=== PATIENT | female | born 1940 | race Caucasian/White ===

== ENCOUNTER 2018-05-18 00:32 | Inpatient (IN) | payer OTHER ==
[~2018-05-18] VITALS: Ht 154.9 cm; Wt 57.8 kg
[~2018-05-18 00:32] MED LIST: CEPH500 PO; CIPR500 PO; HYDACE5 PO; HYDHCL25 PO; OMEP20ER PO; OXYACE5T PO; PIME1CR TOP; PRED20 PO; PROM25 PO; Percocet 5-3251 EACH PO; Permethrin60 GM TOP; Prednisone20 MG PO; RXHYDACE PO; TRIA15CR3 TOP; Valium5 MG PO; Zofran8 MG PO; [UNRECOGNIZED DRUG - REMARK]; [UNRECOGNIZED DRUG - REMARK]
[2018-05-18 01:08] LABS: BASOPHILS ABSOLUTE AUTO 0.06 K/mm3 (0.00-0.23); BASOPHILS PERCENT AUTO 1 % (0-2); EOSINOPHILS ABSOLUTE AUTO 0.05 K/mm3 (0.00-0.68); EOSINOPHILS PERCENT AUTO 0 % (0-6); Hematocrit 42.7 % (33.0-51.0); Hemoglobin 14.4 g/dL (11.5-16.0); IMMATURE GRAN ABSOLUTE AUTO 0.06 K/mm3 (0.00-0.10); IMMATURE GRAN PERCENT AUTO 1 % (0-1); LYMPHOCYTES ABSOLUTE AUTO 1.65 K/mm3 (0.84-5.20); LYMPHOCYTES PERCENT AUTO 14 % (21-46); MONOCYTES ABSOLUTE AUTO 0.71 K/mm3 (0.16-1.47); MONOCYTES PERCENT AUTO 6 % (4-13); Mean Corpuscular HGB 30.2 pg (26.0-34.0); Mean Corpuscular HGB Conc 33.7 g/dL (31.5-36.5); Mean Corpuscular Volume 90 fL (80-100); Mean Platelet Volume 9.4 fL (9.1-12.4); NEUTROPHILS ABSOLUTE AUTO 9.33 K/mm3 (1.96-9.15); NEUTROPHILS PERCENT AUTO 79 % (41-73); Platelet Count 215 K/mm3 (150-400); RDW Coefficient Variation 12.2 % (11.7-14.2); RDW Standard Deviation 40.6 fL (35.1-46.3); Red Blood Cell Count 4.77 M/mm3 (3.80-5.20); White Blood Cell Count 11.86 K/mm3 (4.00-11.30)
[2018-05-18 01:25] LABS: Alanine Aminotransfer (ALT/SGP 28 U/L (12-78); Albumin, Blood 4.3 g/dL (3.4-5.0); Albumin/Globulin Ratio 1.1 (0.8-1.8); Alk Phos 79 U/L (50-136); Anion Gap 9 mmol/L (6-16); Aspartate Aminotrans (AST/SGOT 28 U/L (12-37); Bilirubin, Total 0.5 mg/dL (0.1-1.0); Blood Urea Nitrogen 15 mg/dL (8-24); Bun/Creatinine Ratio 21.5 (12.0-20.0); CO2, Blood 32 mmol/L (21-32); Calcium, Blood 9.4 mg/dL (8.5-10.1); Chloride, Blood 99 mmol/L (98-108); Globulin, Blood 3.8 g/dL (2.2-4.0); Glomerular Filtration Rate >60 (60-); Glucose, Blood 187 mg/dL (70-99); Potassium, Blood 3.3 mmol/L (3.5-5.5); Sodium, Blood 140 mmol/L (136-145); Total Protein, Blood 8.1 g/dL (6.4-8.2)
--- NOTE | 2018-05-18 13:43 | NUR ---
PT ADMITTED PT ADMITTED IN STABLE CONDITION. A&OX4. FAMILY AT BEDSIDE. PT BP ELEVATED TO 193/87 & HR OF 114. DR. ALAMO AWARE & STATED SHE WOULD TAKE A LOOK. ORDER FOR LOW INTERMITTED SUCTION THROUGH NG TUBE TAKEN BY DR. ALAMO. ALSO STATED SHE WOULD LOOK INTO GETTING THE PT A NUMBING SPRAY FOR HER THROAT. WILL CONTINUE TO MONITOR. PT ORIENTED TO ROOM.
--- NOTE | 2018-05-18 16:48 | NUR ---
SHIFT SUMMARY HYDRALAZINE GIVEN FOR PT BP OF 160/103. BP BROUGHT DOWN TO 152/91. HR CONTINUES TO BE ELEVATED AT 125. PT HAS SLIGHT FEVER AT 99.3. PT STATES SHE IS CHILLED. PT EDUCATED THAT FEVER CAUSE THE BODY TO FEEL COLD. PT MEDICATED FOR A HEADACHE ONCE THIS SHIFT WITH FENTANYL. PT STATES THAT HER HEADACHE CONTINUES TO PERSIST. COOL WASHCLOTH GIVEN TO PT FOR COMFORT. NG TUBE HOOKED UP TO LOW INTERMITTEN SUCTION. STOMACH CONTENTS SEEN IN TUBING. NON HAS BEEN COLLECTED IN THE COLLECTION CHAMBER HOWEVER. OTHER VITALS STABLE. NO OTHER CHANGES IN ASSESSMENT AT THIS TIME. PT SBA IN ROOM & WALKS TO BATHROOM. PT RECIEVING FLUIDS AT 75 ML/HR. PT CURRENTLY SLEEPING IN BED. FAMILY AT BEDSIDE. SURGICAL CONSULT CALLED IN THIS SHIFT. WILL CONTINUE TO MONITOR UNTIL TURNOVER IS COMPLETE.
--- NOTE | 2018-05-18 17:35 | NUR ---
HEADACHE DR. ALAMO CALLED IN REGARDS OF THE PT HEADACHE. THIS RN REQUESTED TYLENOL FOR PAIN RELIEF. THE PT CURRENTLY ONLY HAS FENATYL ORDERED Q4H.
[2018-05-19 05:48] LABS: Hematocrit 42.5 % (33.0-51.0); Hemoglobin 13.9 g/dL (11.5-16.0); Mean Corpuscular HGB 30.2 pg (26.0-34.0); Mean Corpuscular HGB Conc 32.7 g/dL (31.5-36.5); Mean Corpuscular Volume 92 fL (80-100); Platelet Count 196 K/mm3 (150-400); RDW Coefficient Variation 12.7 % (11.7-14.2); RDW Standard Deviation 42.8 fL (35.1-46.3); White Blood Cell Count 14.34 K/mm3 (4.00-11.30)
[2018-05-19 06:29] LABS: Alanine Aminotransfer (ALT/SGP 23 U/L (12-78); Albumin, Blood 3.6 g/dL (3.4-5.0); Alk Phos 65 U/L (50-136); Anion Gap 7 mmol/L (6-16); Aspartate Aminotrans (AST/SGOT 29 U/L (12-37); Bilirubin, Total 0.8 mg/dL (0.1-1.0); Blood Urea Nitrogen 11 mg/dL (8-24); Bun/Creatinine Ratio 22.6 (12.0-20.0); CO2, Blood 28 mmol/L (21-32); Calcium, Blood 8.8 mg/dL (8.5-10.1); Chloride, Blood 105 mmol/L (98-108); Creatinine, Blood 0.49 mg/dL (0.40-1.00); Globulin, Blood 3.7 g/dL (2.2-4.0); Glomerular Filtration Rate >60 (60-); Glucose, Blood 105 mg/dL (70-99); Potassium, Blood 3.7 mmol/L (3.5-5.5); Sodium, Blood 140 mmol/L (136-145); Total Protein, Blood 7.3 g/dL (6.4-8.2)
--- NOTE | 2018-05-19 08:04 | NUR ---
0215: spoke to hospitalist and req tylenol for headache.
--- NOTE | 2018-05-19 20:14 | NUR ---
SUMM- PT A/O, INDEPENDANT WITH SBA IN ROOM. UP TO BATHROM A FEW TIMES. OTHERWISE RESTING IN BED. HAS A BAD HEADACHA ALL DAY, BELEIVED TO BE A RESULT OF NG TUBE AND STRESS. PT HAS NORMOACTIVE BT'S, NG TO LIWS ALL DAY UNTIL 1540, NG CLAMPED PER DR MARTINEZ. ORDER TO DC AFTER 3 HOURS IF NO DISTENTION OR N/V. NG TUBE DC'D 1949 PER RN. STATES NO RELEIF OF HEADACHE ALL DAY. REPORT TO NOCS. IVF CONT. CONT NPO WITH ICE SPARINGLY FOR SORE DRY MOUTH AND THROAT. BP ELEVATED THIS AM AND MEDICATED WITH HYDRALAZINE WHICH BROUGHT BP DOWN NICELY FOR THE REST OF THE SHIFT. REPROTED TO NIGHTS.
[2018-05-20 05:29] LABS: Hematocrit 40.3 % (33.0-51.0); Mean Corpuscular HGB Conc 32.3 g/dL (31.5-36.5); Mean Corpuscular Volume 93 fL (80-100); Mean Platelet Volume 9.5 fL (9.1-12.4); Platelet Count 188 K/mm3 (150-400); RDW Coefficient Variation 12.5 % (11.7-14.2); RDW Standard Deviation 43.1 fL (35.1-46.3); Red Blood Cell Count 4.33 M/mm3 (3.80-5.20); White Blood Cell Count 10.81 K/mm3 (4.00-11.30)
[2018-05-20 05:55] LABS: Albumin, Blood 3.3 g/dL (3.4-5.0); Anion Gap 9 mmol/L (6-16); Blood Urea Nitrogen 15 mg/dL (8-24); Bun/Creatinine Ratio 33.2 (12.0-20.0); CO2, Blood 25 mmol/L (21-32); Calcium, Blood 8.5 mg/dL (8.5-10.1); Chloride, Blood 106 mmol/L (98-108); Creatinine, Blood 0.45 mg/dL (0.40-1.00); Glomerular Filtration Rate >60 (60-); Glucose, Blood 90 mg/dL (70-99); Phosphorus, Blood 2.2 mg/dL (2.5-4.9); Potassium, Blood 3.6 mmol/L (3.5-5.5); Sodium, Blood 140 mmol/L (136-145)
--- NOTE | 2018-05-20 18:39 | NUR ---
SUMMARY- PT A/O, SBA AMBULATES IN ROOM TO BATHROOM. TOLERATING GENERAL DIET SMALL AMOUNTS. TOLERATING CLEARS. NO NAUSEA OF VOMITING. PASSING GAS, NO BM TODAY. GOT UP AND SHOWERED 1700 AND SAT IN CHAIR, FEELING A LOT BETTER. FIORECET GIVEN FOR HEADACHE WITH MOD RELEIF, HEADACHE DOWN FROM 7 TO 5. STATES SHE DRINKS POTS OF COFFEE AT HOME AND THE CAFFEINE IS LIKELY HELPING ALLEVIATE HEADACHE.
--- NOTE | 2018-05-21 06:21 | NUR ---
Rn summary: Patient is alert and independant in room. Pt states abdomen is much softer and that she has been passing gas, no BM yet. Pt has not eaten during the night. Patient does c/o headache which see states is from neck problems. She states her head hurts worse when she stands up. Medicated x2 with fioricet with some relief. She states she did not sleep but when rounded on eyes were closed. Daughter is at bedside and call light is in reach.
[2018-05-21] MEDS ORDERED: LIDO700A20 TOP (11:36)
[2018-05-21] MEDS ORDERED: ONDA4ODT MM (11:38)
--- NOTE | 2018-05-21 12:20 | NUR ---
D/C INSTRUCTIONS PROVIDED AND EXPLAINED. MEDS FAXED TO [facility]. PT D/C VIA AMBULATION AT 1220 WITH DAUGHTER.
== END 2018-05-21 12:35 | disposition home or self-care (01) | DRG 395 ==
LOC: ER 00:32 → ERHOLD 05:05 → MEDS 05:05
PROVIDERS: Emergency Medicine; Internal Medicine; ADMIT Internal Medicine
PROC: 0D9670Z Drainage of Stomach with Drainage Device, Via Natural or Artificial Opening (ICD-10-PCS; principal; 2018-05-18)
DX: K91.89 Other postprocedural complications and disorders of digestive system (principal); E87.6 Hypokalemia; Z85.41 Personal history of malignant neoplasm of cervix uteri; I95.9 Hypotension, unspecified; K21.9 Gastro-esophageal reflux disease without esophagitis
CPT/HCPCS: 36415; 74176; 80053; 80069; 83690; 85025; 85027; 96361; 96374; 96375; 96376; 99285-25; C9113; J0360; J1650; J2405; J2765; J3010; J3480; J7030

== ENCOUNTER 2018-12-03 13:18 | Emergency (ER) | payer OTHER ==
[~2018-12-03] VITALS: Ht 147.3 cm; Wt 59.0 kg
[~2018-12-03 13:18] MED LIST changes: +LIDO700A20 TOP; +ONDA4ODT MM
[2018-12-03] MEDS ORDERED: HYDR1TAB94 PO (14:06)
[2018-12-03] MEDS ORDERED: Monodox100 MG PO (14:06)
== END 2018-12-03 14:28 | disposition home or self-care (01) ==
LOC: ER 13:18
DX: S51.851A Open bite of right forearm, initial encounter (principal); Z85.41 Personal history of malignant neoplasm of cervix uteri; Z85.43 Personal history of malignant neoplasm of ovary; Z88.0 Allergy status to penicillin; Z88.2 Allergy status to sulfonamides; Z88.8 Allergy status to other drugs, medicaments and biological substances; Z88.5 Allergy status to narcotic agent; Z91.048 Other nonmedicinal substance allergy status; W55.01XA Bitten by cat, initial encounter
CPT/HCPCS: 99283

== ENCOUNTER 2019-03-25 19:40 | Emergency (ER) | payer OTHER ==
[~2019-03-25] VITALS: Ht 147.3 cm; Wt 59.0 kg
[~2019-03-25 19:40] MED LIST changes: +HYDR1TAB94 PO; +Monodox100 MG PO
[2019-03-25] MEDS ORDERED: IBUP400 PO (22:35)
[2019-03-25] MEDS ORDERED: DESO.05TL TOP (22:35)
== END 2019-03-25 23:19 | disposition home or self-care (01) ==
LOC: ER 19:40
DX: M77.9 Enthesopathy, unspecified (principal); Z88.0 Allergy status to penicillin; Z88.2 Allergy status to sulfonamides; Z88.6 Allergy status to analgesic agent; Z88.1 Allergy status to other antibiotic agents; Z88.5 Allergy status to narcotic agent; Z88.7 Allergy status to serum and vaccine; Z91.048 Other nonmedicinal substance allergy status
CPT/HCPCS: 73590; 73630; 99283-25

== ENCOUNTER 2024-07-15 23:18 | Emergency (ER) | payer OTHER ==
[~2024-07-15] VITALS: Ht 149.9 cm; Wt 52.2 kg
[~2024-07-15 23:18] MED LIST changes: +ACETAMINOPHEN500 MG PO; +CRUTCH2 XX; +DESO.05TL TOP; +IBUP400 PO
[2024-07-16 00:28] VITALS: BP 167/75
== END 2024-07-16 01:20 | disposition home or self-care (01) ==
LOC: ER 23:18
DX: S00.83XA Contusion of other part of head, initial encounter (principal); Z88.0 Allergy status to penicillin; Z88.2 Allergy status to sulfonamides; Z88.8 Allergy status to other drugs, medicaments and biological substances; Z88.7 Allergy status to serum and vaccine; Z87.891 Personal history of nicotine dependence; W18.30XA Fall on same level, unspecified, initial encounter
CPT/HCPCS: 70450; 72125; 99284-25

== ENCOUNTER 2024-07-17 10:11 | Emergency (ER) | payer OTHER ==
[~2024-07-17] VITALS: Ht 149.9 cm; Wt 54.4 kg
[2024-07-17 10:54] VITALS: BP 153/69
[2024-07-17 12:51] LABS: BASOPHILS ABSOLUTE AUTO 0.05 K/mm3 (0.00-0.23); BASOPHILS PERCENT AUTO 1 % (0-2); EOSINOPHILS PERCENT AUTO 1 % (0-6); Hematocrit 40.8 % (33.0-51.0); Hemoglobin 14.1 g/dL (11.5-16.0); IMMATURE GRAN ABSOLUTE AUTO 0.06 K/mm3 (0.00-0.10); IMMATURE GRAN PERCENT AUTO 1 % (0-1); LYMPHOCYTES ABSOLUTE AUTO 2.01 K/mm3 (0.84-5.20); LYMPHOCYTES PERCENT AUTO 25 % (21-46); MONOCYTES ABSOLUTE AUTO 0.72 K/mm3 (0.16-1.47); MONOCYTES PERCENT AUTO 9 % (4-13); Mean Corpuscular HGB 30.3 pg (26.0-34.0); Mean Corpuscular HGB Conc 34.6 g/dL (31.5-36.5); Mean Corpuscular Volume 88 fL (80-100); Mean Platelet Volume 9.9 fL (9.1-12.4); NEUTROPHILS ABSOLUTE AUTO 4.98 K/mm3 (1.96-9.15); NEUTROPHILS PERCENT AUTO 63 % (41-73); Platelet Count 209 K/mm3 (150-400); RDW Coefficient Variation 11.9 % (11.7-14.2); RDW Standard Deviation 38.5 fL (35.1-46.3); Red Blood Cell Count 4.65 M/mm3 (3.80-5.20); White Blood Cell Count 7.92 K/mm3 (4.00-11.30)
[2024-07-17 13:20] LABS: Albumin, Blood 3.8 g/dL (3.4-5.0); Albumin/Globulin Ratio 1.1 (0.8-1.8); Bilirubin, Total 0.4 mg/dL (0.1-1.0); Bun/Creatinine Ratio 27.2 (12.0-20.0); Calcium, Blood 9.1 mg/dL (8.5-10.1); Creatinine, Blood 0.55 mg/dL (0.40-1.00); Globulin, Blood 3.6 g/dL (2.2-4.0); Potassium, Blood 3.6 mmol/L (3.5-5.5); Total Protein, Blood 7.4 g/dL (6.4-8.2)
[2024-07-17 15:56] LABS: Source, Urine Clean Catch
[2024-07-17 16:00] LABS: Appearance, Urine Clear (Clear); Bilirubin, Urine Neg (Neg); Blood, Urine Neg (Neg); Color, Urine Yellow (P-Yellow); Glucose Qualitative, Urine Neg (Neg); Ketones, Urine 2+ (Neg); Leukocyte Esterase, Urine Neg (Neg); Nitrite, Urine Neg (Neg); Protein, Urine Neg (Neg); Specific Gravity, Urine 1.015 (1.003-1.022); Urobilinogen, Urine NORM (Normal)
== END 2024-07-17 18:21 | disposition home or self-care (01) ==
LOC: ER 10:11
PROVIDERS: Emergency Medicine
DX: S05.12XA Contusion of eyeball and orbital tissues, left eye, initial encounter (principal); S05.11XA Contusion of eyeball and orbital tissues, right eye, initial encounter; F03.90 Unspecified dementia, unspecified severity, without behavioral disturbance, psychotic disturbance, mood disturbance, and anxiety; X58.XXXA Exposure to other specified factors, initial encounter; Z88.0 Allergy status to penicillin; Z88.2 Allergy status to sulfonamides; Z88.5 Allergy status to narcotic agent; Z88.8 Allergy status to other drugs, medicaments and biological substances; Z87.891 Personal history of nicotine dependence
CPT/HCPCS: 80053; 81003; 85025; 99283